=== PATIENT | female | born 2000 | race Two or more races ===

== ENCOUNTER 2024-02-15 12:44 | Emergency (ER) | payer MEDICAID ==
[~2024-02-15] VITALS: Ht 149.9 cm; Wt 42.0 kg
[2024-02-15 12:52] VITALS: O2SAT 100
[2024-02-15] MEDS: ACETAMINOPHEN 325MG TABLET PO ONE (14:48)
[2024-02-15] MEDS ORDERED: ASPI-740 PO (16:35)
[2024-02-15] MEDS: DIPHENHYDRAMINE 12.5MG/5ML UDC PO ONE (16:45)
[2024-02-15] MEDS: METOCLOPRAMIDE HCL 10MG TABLET PO ONE (16:45)
[2024-02-15] MEDS: KETOROLAC 15MG/ML VIAL IM ONE (16:45)
[2024-02-15 16:56] VITALS: BP 132/87; PULSE 84; RESP 16; TEMP 98
== END 2024-02-15 17:49 | disposition home or self-care (01) ==
LOC: ER 12:44
DX: R51.9 Headache, unspecified (principal); R42 Dizziness and giddiness
CPT/HCPCS: 81025; 70450; 96372; 99285; J8597; J1885; Z7610